=== PATIENT | female | born 1995 | race Caucasian/White ===

== ENCOUNTER 2019-01-14 13:02 | Inpatient (IN) | payer OTHER ==
[~2019-01-14] VITALS: Ht 160 cm; Wt 62.7 kg
[2019-01-14 14:04] VITALS: BP 119/71; PULSE 94; RESP 18; Ht 160 cm; Wt 62.7 kg
[2019-01-14] MEDS ORDERED: PNV-4 PO (14:08)
[2019-01-14] MEDS ORDERED: AMPICILLIN 2 GM/NS (PMX) 100 ML IV ONE (17:00)
[2019-01-14] MEDS ORDERED: MISOPROSTOL 200 MCG TAB PR PRN (17:00)
[2019-01-14] MEDS ORDERED: OXYTOCIN 30 UNITS/LR 500 ML IV PRN (17:00)
[2019-01-14] MEDS ORDERED: OXYTOCIN 30 UNITS/LR 500 ML IV SCH ×2 (17:00)
[2019-01-14] MEDS ORDERED: METHYLERGONOVINE 0.2 MG INJ IM PRN (17:00)
[2019-01-14] MEDS ORDERED: LIDOCAINE 1% (MPF) 30 ML INJ INJ PRN (17:00)
[2019-01-14] MEDS ORDERED: CARBOPROST 250 MCG INJ IM PRN (17:00)
[2019-01-14] MEDS: LACTATED RINGER'S 1,000 ML IV SCH (17:53)
[2019-01-14] MEDS: AMPICILLIN 1 GM/NS (PMX) 50 ML IV SCH (22:09)
[2019-01-15] MEDS: LACTATED RINGER'S 1,000 ML IV SCH ×3 (01:57→18:57)
[2019-01-15] MEDS: AMPICILLIN 1 GM/NS (PMX) 50 ML IV SCH ×6 (01:59→21:36)
[2019-01-15] MEDS ORDERED: OXYTOCIN 30 UNITS/LR 500 ML IV SCH (10:30)
--- NOTE | 2019-01-15 12:59 | PREAC ---
Date/Time of Note Date/Time of Note DATE: 01/15/19 TIME: 12:58 Anesthesia Eval and Record Evaluation Time Pre-Procedure Interview DATE: 01/15/19 TIME: 12:58 Age 23 Sex female NPO: Other (na) Preoperative diagnosis labor pain Planned procedure epidural Past Medical History Past Medical History: None Surgery & Anesthesia Issues No known issue Meds Anticoagulation: No Beta Zakiya within 24 hr: No Reason Beta Zakiya not given: Pt. not on B-Zakiya Reported Medications Pnv No.95/Ferrous Fum/Folic AC ( Multivitamin Tablet) 1 Each Tablet, 1 EACH PO DAILY, TAB 01/14/19 Current Medications Lactated Ringer's 1,000 ml @ 125 mls/hr Q8H IV Last administered on 01/15/19at 01:57; Admin Dose 125 MLS/HR; Start 01/14/19 at 16:52 Ampicillin 50 ml @ 100 mls/hr Q4H IV Last administered on 01/15/19at 10:34; Admin Dose 100 MLS/HR; Start 01/14/19 at 21:00 Lidocaine (Xylocaine 1% (Mpf)) 30 ml ONCE PRN INJ .EPISIOTOMY; Start 01/14/19 at 17:00 Oxytocin/Lactated Ringer's 500 ml @ 500 mls/hr ONCE POST IV ; Start 01/14/19 at 17:00 Oxytocin/Lactated Ringer's 500 ml @ 125 mls/hr POST IV ; Start 01/14/19 at 17:00 Oxytocin/Lactated Ringer's 500 ml @ 0 mls/hr ONCE PRN IV .VAGINAL BLEEDING; Start 01/14/19 at 17:00 Methylergonovine Maleate (Methergine) 0.2 mg ONCE PRN IM .VAGINAL BLEEDING; Start 01/14/19 at 17:00 Carboprost Tromethamine (Hemabate) 250 mcg ONCE PRN IM .VAGINAL BLEEDING; Start 01/14/19 at 17:00 Misoprostol (Cytotec) 1,000 mcg ONCE PRN ME .VAGINAL BLEEDING; Start 01/14/19 at 17:00 Oxytocin/Lactated Ringer's 500 ml @ 0 mls/hr FOR AUGMENTATION IV Last administered on 01/15/19at 10:36; Admin Dose 1 MLS/HR; Start 01/15/19 at 10:30 Meds reviewed: Yes Allergies Coded Allergies: No Known Drug Allergy (Verified Allergy, Unknown, 01/14/19) Allergies Reviewed: Yes Labs/Studies Labs Reviewed: Reviewed by anesthesiologist Result Diagram: 01/14/19 1730 Laboratory Tests 01/14/19 17:30 Blood Bank Test 01/14/19 17:30 Antibody Screen NEGATIVE Blood Type A POSITIVE Rh Immune Globulin Candidate NO test: N/A Pre-procedure Exam Last vitals Vital Signs Date Temp Pulse Resp B/P (MAP) Pulse Ox O2 O2 Flow FiO2 Time Delivery Rate 01/14/19 98.6 94 18 119/71 Room Air 14:04 (87) Airway: Adequate mouth opening, Adequate thyromental dist Mallampati: Mallampati II Teeth: Normal Lung: Normal Heart: Normal ASA Physical Status ASA physical status: 2 Emergency: None Pre-operative Attestations Prior to commencing anesthesia and surgery, the patient was re-evaluated, there was verification of: *The patient's identity *The results of appropriate recent lab work and preoperative vital signs *The above evaluation not changing prior to induction *Anesthetic plan, risk benefits, alternative and complications discussed with patient/family; questions answered; patient/family understands, accepts and wishes to proceed. BEE DENTON DO Jan 15, 2019 12:59
[2019-01-15] MEDS ORDERED: FENTAnyl 2MCG/ML-ROPIV 0.2% 100 ML BAG EPI SCH (13:30)
[2019-01-15] MEDS ORDERED: NALOXONE (0.4 MG/ML) INJ IV PRN (13:30)
--- NOTE | 2019-01-15 15:47 | PAC ---
Date/Time of Note Date/Time of Note DATE: 01/15/19 TIME: 15:47 Post-Anesthesia Notes Post-Anesthesia Note Last documented vital signs Vital Signs Date Temp Pulse Resp B/P (MAP) Pulse Ox O2 O2 Flow FiO2 Time Delivery Rate 01/14/19 98.6 94 18 119/71 Room Air 14:04 (87) Activity: WNL Respiratory function: WNL Cardiovascular function: WNL Mental status: Baseline Pain reasonably controlled: Yes Hydration appropriate: Yes Nausea/Vomiting absent: Yes BEE DENTON DO Jan 15, 2019 15:47
--- NOTE | 2019-01-15 15:49 | HP ---
Date/Time of Note Date/Time of Note DATE: 01/15/19 TIME: 15:44 OB - History Hx of Present Free Text/Dictation 23 years old 1 with single intrauterine at 38 weeks and 5 days with GLADYS of 01/24/2019 complaining of uterine contractions. She states good movement. She denies nausea, vomiting, shortness of breath, chest pain, headache, visual changes, vaginal bleeding or LOF. Chief Complaint: Uterine contractions Estimated Due Date: Jan 24, 2019 : 1 Care: Good Care Ultrasounds: Normal mid trimester US Obstetrical Complications: None Medical Complications: None Past Family/Social History * Past Medical, Surgical, Family and Obstetric Histories reviewed from chart. Blood Type: A+ Rubella: immune RPR/VDRL: Negative GBS Status: Positive HBsAG: Negative OB Admission Exam Vital Signs Vital Signs Vital Signs Date Temp Pulse Resp B/P (MAP) Pulse Ox O2 O2 Flow FiO2 Time Delivery Rate 01/14/19 98.6 94 18 119/71 Room Air 14:04 (87) Physical Exam HEENT: WNL Heart: Rhythm Normal Lungs: Clear Abdomen: WNL Extremities: Normal Cervical Dilatation: other (60%) Station: -2 Membranes: Intact Heart Rate: 140's Accelerations: Accelerations Present Decelerations: No Decelerations Varibility: Moderate Contractions on Admission: < 5 Minutes Apart Intensity: Moderate Last 72 hours Lab Results CBC & BMP 01/14/19 17:30 OB Assessment/Plan Other plan: 23 years old 1 with single intrauterine at 38 weeks and 5 days. Initially her exam was 4/60/-3/cephalic/intact. She made cervical changes to 5/70/-2 -FHR: No sign of metabolic acidosis- Category I -Continuous EFM, toco. -She currently has uterine contraction every 2-6 minutes -CBC, blood type and screen -Analgesia options with R/B/A discussed in detail with patient -Epidural per patient request -Please see the orders -A+/Rubella: Immune -GBS: Positive, ampicillin for GBS prophylaxis Admission, procedures, expectations, risks and possible complications have been discussed in detail with the patient. Risk of vaginal delivery including but not limited to bleeding, infection, cervical laceration, placental retention, injury to fetus, blood transfusion, blood transfusion related infection, risk of anesthesia, adhesion, cervical laceration, episiotomy/laceration, possible delivery with risk of bleeding, infection, injury to other organs (bowel, bladder, ureter, vessels, nerves), injury to fetus, blood transfusion, blood transfusion related infection, risk of anesthesia, scar and hernia formation, needs for future , removal of uterus or any other indicated surgery discussed with the patient. She expressed understanding and repeats the risks. All of her questions were answered. She signed the informed consent. PHYSICIAN'S VERIFICATION OF INFORMED CONSENT The patient was counseled regarding the procedure, its indications, risks, potential complications and alternatives and any questions were answered. Cons ent was obtained. PLANNED PROCEDURE/TREATMENT: Vaginal delivery, episiotomy, repair of laceration possible delivery WILL LOPEZ Jan 15, 2019 15:49
[2019-01-16] MEDS: LACTATED RINGER'S 1,000 ML IV SCH ×3 (00:46→16:41)
[2019-01-16] MEDS ORDERED: CEFAZOLIN 1 GM/50 ML (PMX) 50 ML IVPB SCH (03:00)
--- NOTE | 2019-01-16 03:57 | LDN ---
Date/Time of Note Date/Time of Note DATE: 01/16/19 TIME: 03:52 Delivery Summary 01/16/2019 Weeks of Gestation 38 weeks Placenta Delivered: Spontaneously Meconium: none Episiotomy: No Indication for episiotomy N/A Perineal laceration: 2 Laceration repair: seond perineal laceration and first degree left labial laceration Anesthesia type: Epidural Estimated blood loss: 400 Sponge & Needle done & correct: Yes All needle counts correct: Yes Any foreign bodies felt in the: No Infant Delivery Information Sex Sex: male Apgars 1 Minute: 8 5 Minute: 9 Suctioning Nose & mouth suctioned at ledy: Yes Delee suction performed: Yes Umbilical Cord Umbilical cord with: 3 Vessels Cord presentations: no nuchal cord Cord Blood was obtained: Yes Mother & Baby Disposition Disposition I was called to cover for delivery. Patient had been managed during her intrapartum course by primary OB attending. The live male baby 8 and 9. Second-degree perineal laceration and first- degree left labial laceration noted. Placenta appeared to be intact. However due to partial tear of the cord manual exploration of the uterus was also performed to ensure about completeness of expulsion of the placenta. Patient received a dose of Ancef. Manual exploration of the uterine cavity did not show any evidence of retained products of conception. Uterus appears to be somewhat boggy. Pitocin given and due to inadequate firmness of the uterus a dose of Methergine as well as 800 mcg Cytotec rectally was placed. Second-degree perineal laceration repaired using 3-0 and 2-0 chromic as well as first-degree left labial laceration repaired using 3-0 chromic. Hemostasis appeared to be complete. Fundus was firm. Counts were correct x3. JOAN GRAY MD Jan 16, 2019 03:57
[2019-01-16] MEDS ORDERED: OXYTOCIN 30 UNITS/LR 500 ML IV SCH (04:28)
[2019-01-16] MEDS ORDERED: METHYLERGONOVINE 0.2 MG TAB PO PRN (04:30)
[2019-01-16] MEDS ORDERED: DIPHENHYDRAMINE 25 MG CAP PO PRN (04:30)
[2019-01-16] MEDS ORDERED: ACETAMINOPHEN 325 MG TAB PO PRN (04:30)
[2019-01-16] MEDS ORDERED: LANOLIN HPA 1 PKT TOP PRN (04:30)
[2019-01-16] MEDS ORDERED: ONDANSETRON 4 MG INJ IV PRN (04:30)
[2019-01-16] MEDS ORDERED: WITCH HAZEL/GLYCERIN PAD PR PRN (04:30)
[2019-01-16] MEDS ORDERED: NACL 0.9% 3 ML SYG IV SCH (04:30)
[2019-01-16] MEDS ORDERED: MISOPROSTOL 200 MCG TAB PR PRN (04:30)
[2019-01-16] MEDS ORDERED: OXYTOCIN 30 UNITS/LR 500 ML IV PRN (04:30)
[2019-01-16] MEDS ORDERED: ZOLPIDEM 5 MG TAB PO PRN (04:30)
[2019-01-16] MEDS ORDERED: METHYLERGONOVINE 0.2 MG INJ IM PRN (04:30)
[2019-01-16] MEDS ORDERED: CARBOPROST 250 MCG INJ IM PRN (04:30)
[2019-01-16] MEDS: HYDROCODONE/APAP (5/325) TAB PO PRN ×2 (04:57→15:52)
[2019-01-16 05:00] VITALS: BP 115/72; PULSE 87; RESP 18
[2019-01-16] MEDS ORDERED: BENZOCAINE 20% 56 ML SPRAY TOP PRN (05:00)
[2019-01-16] MEDS: IBUPROFEN 600 MG TAB PO SCH ×4 (06:02→23:57)
[2019-01-16 08:00] VITALS: BP 117/63; PULSE 80; RESP 18
[2019-01-16] MEDS: SENNA/DOCUSATE NA (8.6MG/50MG) TAB PO SCH ×2 (10:04→21:22)
[2019-01-16 12:00] VITALS: BP 121/78; PULSE 78; RESP 18
[2019-01-16 16:00] VITALS: BP 114/72; PULSE 70; RESP 18
[2019-01-17] MEDS: LACTATED RINGER'S 1,000 ML IV SCH (00:52)
[2019-01-17 03:49] VITALS: BP 106/66; PULSE 78; RESP 20
[2019-01-17] MEDS: IBUPROFEN 600 MG TAB PO SCH ×4 (05:21→23:53)
[2019-01-17 08:15] VITALS: BP 107/56; PULSE 79; RESP 16
[2019-01-17] MEDS: SENNA/DOCUSATE NA (8.6MG/50MG) TAB PO SCH ×2 (10:08→20:52)
[2019-01-17 16:00] VITALS: BP 110/74; PULSE 78; RESP 18
[2019-01-17 19:40] VITALS: BP 107/56; PULSE 76; RESP 19
[2019-01-18 04:00] VITALS: BP 101/62; PULSE 75; RESP 20
[2019-01-18] MEDS: IBUPROFEN 600 MG TAB PO SCH ×3 (05:34→18:17)
[2019-01-18 09:15] VITALS: BP 107/61; PULSE 84; RESP 16
[2019-01-18] MEDS: SENNA/DOCUSATE NA (8.6MG/50MG) TAB PO SCH (09:16)
[2019-01-18] MEDS ORDERED: IBUP-1542 PO (16:27)
--- NOTE | 2019-01-18 16:33 | DS ---
Date/Time of Note Date/Time of Note DATE: 01/18/19 TIME: 16:33 Obstetrical Discharge Record Final Diagnosis Final Diagnosis: Term delivered Other Final Diagnosis Subjective: Patient without complaints. Tolerating a regular diet. Breast- feeding. Lochia within normal limits. + ambulating. Desires OCPs. Objective: Vital signs within normal limits. H/H: 9.7/27.7 General: No apparent distress. Abdomen: Fundus 2 fingerbreadths below the umbilicus Extremities nontender to palpation. Assessment/plan: 1. day #2-routine care. Patient was admitted to the hospital on 01/16/2019 at 38 weeks and 5 days with labor. Her hospital course was uncomplicated. She delivered vaginally on 01/16/2019. 2. GBS positive-s/p ampicillin. 3. Anemia-ferrous sulfate Disposition: Discharged home in stable condition Condition on Discharge Physical Assessment Patient Condition: Stable MILESTONE,SHUN MARQUEZ Jan 18, 2019 16:33
[2019-01-18 16:34] VITALS: BP 116/73; PULSE 83; RESP 18
--- NOTE | 2019-01-19 20:05 | DELSUM ---
Delivery Summary A-C Datetime Report Generated by CPN: 01/19/2019 20:05 DELIVERY PERSONNEL Sealer Sander: Yovana Ayone MATERNAL INFORMATION Delivery Anesthesia: Epidural Medications in Delivery: Pitocin 30 units Delivery QBL (ml): 400 Placenta Cultured: No Maternal Complications: None LABOR SUMMARY EDC: 01/25/2019 00:00 No. Babies in Womb: 1 Attempted: No Labor Anesthesia: Epidural LABOR INFORMATION Reason for Induction: Not Applicable Onset of Labor: 01/15/2019 16:27 Complete Dilatation: 01/16/2019 01:10 Group B Beta Strep: Positive Antibiotics # of Doses: 8 Antibiotics Time of Last Dose: 01/15/2019 21:36 Steroids Given: None Reason Steroids Not Administered: Not Applicable MEMBRANES Membranes Rupture Method: Artificial Rupture of Membranes: 01/15/2019 12:46 Length of Rupture (hr): 13.40 Amniotic Fluid Color: Clear Amniotic Fluid Amount: Moderate Amniotic Fluid Odor: None STAGES OF LABOR Stage 1 hr: 8 Stage 1 min: 43 Stage 2 hr: 1 Stage 2 min: 0 Stage 3 hr: 0 Stage 3 min: 3 Total Time in Labor hr: 9 Total Time in Labor min: 46 VAGINAL DELIVERY Laceration Extension: Second Degree Laceration Type: Perineal Laceration Repair: Yes Initial Vag Sponge Count: 10 Final Vag Sponge Count: 15 Initial Vag Sharps Count: 1 Final Vag Sharps Count: 2 Sponge Count Correct: Yes; Vaginal Sweep Performed Sharps Count Correct: Yes BABY A INFORMATION Infant Delivery Date/Time: 01/16/2019 02:10 Method of Delivery: Vaginal Born in Route : No : N/A Forceps: N/A Vacuum Extraction: N/A Shoulder Dystocia : N/A SHOULDER DYSTOCIA BABY A Delivery Date/Time: 01/16/2019 02:10 PRESENTATION/POSITION BABY A Presentation: Cephalic Cephalic Presentation: Vertex Vertex Position: Left Occipital Anterior Breech Presentation: N/A PLACENTA INFORMATION BABY A Placenta Delivery Time : 01/16/2019 02:13 Placenta Method of Delivery: Spontaneous Placenta Status: Delivered SCORES BABY A Heart Rate 1 min: >100 bpm Resp Effort 1 min: Good Cry Reflex Irritability 1 min: Cough/Sneeze/Pulls Away Muscle Tone 1 min: Active Motion Color 1 min: Blue/Pale Resuscitation Effort 1 min: Tactile Stimulation SCORE 1 MIN: 8 Heart Rate 5 min: >100 bpm Resp Effort 5 min: Good Cry Reflex Irritability 5 min: Cough/Sneeze/Pulls Away Muscle Tone 5 min: Active Motion Color 5 min: Body [place], Extremit Blue Resuscitation Effort 5 min: Tactile Stimulation SCORE 5 MIN: 9 INFORMATION BABY A Gestational Age at Delivery: 38.5 Gestational Status: Early Term- 37- 38.6 Weeks Infant Outcome : Liveborn, with signs of life Infant Condition : Stable Sex: Male IDENTIFICATION/MEDS BABY A ID Band Number: [id number] ID Band Location: Right Leg; Left Arm Sensor Applied: Yes Sensor Number: [id number] Sensor Location : Cord Clamp Vitamin K Given : Not Given Erythromycin Given: Not Given WEIGHT/LENGTH BABY A Infant Birthweight (gm): 2960 Infant Weight (lb): 6 Infant Weight (oz): 8 Length (in): 21.00 Infant Length (cm): 53.34 CORD INFORMATION BABY A No. Cord Vessels: 3 Nuchal Cord : N/A Cord Blood Taken: No Suction: Mouth; Nose ASSESSMENT BABY A Infant Complications: None Physical Findings at Delivery: Within Normal Limits Infant Respirations: Appears Normal Souvenir Assembler/ALS Called : No Care By: Diana Staton Transferred To: Remains with Mother
== END 2019-01-18 19:00 | disposition home or self-care (01) | DRG 807 ==
LOC: OBT 13:02 → L-D 13:03 → OBT 16:50 → L-D 21:44 → PP1 01-16 04:52
PROVIDERS: ADMIT Obstetrics & Gynecology; ATTEND Obstetrics & Gynecology
PROC: 10E0XZZ Delivery of Products of Conception, External Approach (ICD-10-PCS; principal; 2019-01-16)
PROC: 0KQM0ZZ Repair Perineum Muscle, Open Approach (ICD-10-PCS; 2019-01-16)
PROC: 0UQMXZZ Repair Vulva, External Approach (ICD-10-PCS; 2019-01-16)
DX: O70.1 Second degree perineal laceration during delivery (principal); Z37.0 Single live birth; O99.820 Streptococcus B carrier state complicating pregnancy; Z3A.38 38 weeks gestation of pregnancy; O70.0 First degree perineal laceration during delivery
CPT/HCPCS: 62322; 76818; 85014; 85018; 85025; 85610; 85730; 86592; 86850; 86900; 86901; 99464; G0463; J0290; J0690; J2210; J2590; J3010; J7120